=== PATIENT | female | born 1935 | race Hispanic/Latino ===

== ENCOUNTER 2017-09-08 10:53 | Emergency (ER) | payer MEDICARE, BC ==
[2017-09-08 11:23] VITALS: BP 170/90; PULSE 86; RESP 18; TEMP 97.6; O2SAT 99; BMI 25.1
--- NOTE | 2017-09-08 12:15 | ED PDOC ---
Arrival/HPI - General Chief Complaint: Lower Extremity Problem/Injury Time Seen by Provider: 09/08/17 11:25 Historian: Patient, Family - History of Present Illness Narrative History of Present Illness (Text): 09/08/17 12:11 81 year old female, whose medical history includes poor circulation, brought into the Emergency department by son presents with right knee pain since yesterday. Patient states she was spring cleaning and repeatedly climbing up and down a step ladder throughout the day. By the end of the day, right knee began to hurt so patient took an Aspirin 325 mg. Patient continued to ambulate and pain persisted through the night. Patient denies trauma, change in motor or sensation, fever, chills, shortness of breath, nausea, vomiting, diarrhea, or any other complaints. Patient reports she has previously had fluid on the right knee and had it drained by Dr. Lovett. Time/Duration: 24 hours Symptom Onset: Gradual Symptom Course: Unchanged Quality: Aching, Pressure Severity Level: 6 Activities at Onset: Light Context: Exertion, Home Past Medical History - Provider Review Nursing Documentation Reviewed: Yes - Travel History Have you recently traveled outside [place] w/in the past 3 mons?: No - Cardiac Hx Cardiac Disorders: Yes - Pulmonary Hx Respiratory Disorders: No - Neurological Hx Neurological Disorder: No - HEENT Hx HEENT Disorder: No - Renal Hx Renal Disorder: No - Endocrine/Metabolic Hx Endocrine Disorders: No - Hematological/Oncological Hx Blood Disorders: No - Integumentary Hx Dermatological Disorder: No - Musculoskeletal/Rheumatological Hx Musculoskeletal Disorders: Yes Other/Comment: right knee - Gastrointestinal Hx Gastrointestinal Disorders: No - Genitourinary/Gynecological Hx Genitourinary Disorders: No - Psychiatric Hx Psychophysiologic Disorder: No Hx Substance Use: No - Surgical History Other/Comment: fluid drained from right knee Family/Social History - Physician Review Nursing Documentation Reviewed: Yes Family/Social History: Unknown Family HX Smoking Status: Heavy Smoker > 10 Cigarettes Daily Hx Alcohol Use: No Hx Substance Use: No Allergies/Home Meds Allergies/Adverse Reactions: Allergies No Known Allergies Allergy (Verified 09/08/17 11:13) Home Medications: Home Meds Medication Instructions Recorded Confirmed Aspirin [Adult Aspirin] 81 mg PO TID 09/08/17 09/08/17 Simvastatin [Zocor] 40 mg PO DAILY 05/06/18 05/06/18 Review of Systems - Physician Review All systems were reviewed & negative as marked: Yes - Review of Systems Constitutional: absent: Fevers, Night Sweats Eyes: Normal ENT: Normal Respiratory: Normal. absent: SOB Cardiovascular: Normal Gastrointestinal: Normal. absent: Abdominal Pain Genitourinary Female: Normal. absent: Dysuria Musculoskeletal: Arthralgias (right knee), Other (right knee pain) Skin: Normal Neurological: Normal, Gait Changes (slight limp). absent: Focal Weakness Endocrine: Normal Hemo/Lymphatic: Normal Psychiatric: Normal Physical Exam Vital Signs Reviewed: Yes Vital Signs Temp Pulse Resp BP Pulse Ox 09/08/17 11:20 97.6 F 86 18 170/90 H 99 Temperature: Afebrile Blood Pressure: Hypertensive Pulse: Regular Respiratory Rate: Normal Appearance: Positive for: Well-Appearing, Non-Toxic, Comfortable Pain Distress: Mild Mental Status: Positive for: Alert and Oriented X 3 - Systems Exam Head: Present: Atraumatic, Normocephalic Pupils: Present: PERRL Extroacular Muscles: Present: EOMI Conjunctiva: Present: Normal Mouth: Present: Moist Mucous Membranes Neck: Present: Normal Range of Motion Respiratory/Chest: Present: Clear to Auscultation, Good Air Exchange. No: Respiratory Distress, Accessory Muscle Use Cardiovascular: Present: Regular Rate and Rhythm, Normal S1, S2. No: Murmurs Abdomen: No: Tenderness, Distention, Peritoneal Signs Back: Present: Normal Inspection Upper Extremity: Present: Normal Inspection. No: Cyanosis, Edema Lower Extremity: Present: NORMAL PULSES, Normal ROM (Full active and passive ROM ), Tenderness (medial jt line right knee), Swelling (medial aspect of right knee ), Neurovascularly Intact, Capillary Refill < 2 s, Other (Right medial joint line tenderness and effusion. Motor function is 5/5 bilaterally.). No: CALF TENDERNESS, Ernesto's Sign, Deformity, Temperature Abnormalties Neurological: Present: GCS=15, CN II-XII Intact, Speech Normal, Motor Func Grossly Intact, Normal Sensory Function, Gait Normal (mildly antalgic on the right LE). No: Memory Normal Skin: Present: Warm, Dry, Normal Color. No: Rashes Psychiatric: Present: Alert, Oriented x 3, Normal Insight, Normal Concentration Medical Decision Making ED Course and Treatment: 09/08/17 12:10 Impression: 81 year old female presents to the Emergency department complaining of right knee pain since yesterday. (+) R Ju's for meniscal pathology; (-) anterior drawer, Ryan's, or varus/valgus stress test Differential Diagnosis included but are not limited to: meniscal tear secondary to osteoarthritis vs. rule out DVT Plan: -- Bilateral lower extremity Duplex -- Reassess and disposition Progress Notes: 09/08/17 12:10 Patient is worried she may have a DVT because of her history of circulation issues so will order a Doppler. There is no need for x-ray because the patient did not fall or experience legitimate trauma. 09/08/17 12:55 ISABELA wrap for the right knee US results pending 09/08/17 14:14 Bilateral doppler NEGATIVE for DVT Discussed with pt and advised to see PMD and orthopedist in the next few days Likely has menisical irritation secondary to OA - RAD Interpretation Radiology Orders: 09/08/17 12:19 DUPLEX LOWER EXTRM VEIN BILAT [US] Stat - Scribe Statement The provider has reviewed the documentation as recorded by the Odilon Santiago Provider Scribe Attestation: All medical record entries made by the Scribe were at my direction and personally dictated by me. I have reviewed the chart and agree that the record accurately reflects my personal performance of the history, physical exam, medical decision making, and the department course for this patient. I have also personally directed, reviewed, and agree with the discharge instructions and disposition. Disposition/Present on Arrival - Present on Arrival Any Indicators Present on Arrival: Yes History of DVT/PE: No History of Uncontrolled Diabetes: No Urinary Catheter: No History of Decub. Ulcer: No History Surgical Site Infection Following: None - Disposition Have Diagnosis and Disposition been Completed?: Yes Diagnosis: Meniscal injury, Osteoarthritis Disposition: HOME/ ROUTINE Disposition Time: 14:17 Patient Plan: Discharge Condition: GOOD Discharge Instructions (ExitCare): Osteoarthritis, Meniscal Tear (DC) Additional Instructions: Rosalind, thank you for letting us take care of you today. Your provider was ABDIFATAH Burnham. You were treated for right knee pain. The emergency medical care you received today was directed at your acute symptoms. If you were prescribed any medication, please fill it and take as directed. It may take several days for your symptoms to resolve. Return to the Emergency Department if your symptoms worsen, do not improve, or if you have any other problems. Please see your doctor for on-going care. Please contact your doctor or call one of the physicians/clinics you have been referred to that are listed on the Patient Visit Information form that is included in your discharge packet. Bring any paperwork you were given at discharge with you along with any medications you are taking to your follow up visit. Our treatment cannot replace ongoing medical care by a primary care provider (PCP) outside of the emergency department. Thank you for allowing the [facility] team to be part of your care today. Prescriptions: Naproxen 500 mg PO Q12 #10 tablet Referrals: Tenzin Franco MD [Primary Care Provider] - Follow up with primary Forms: [email or web address] ([place])
--- NOTE | 2017-09-08 19:35 | US ---
HISTORY: Leg pain and swelling. Evaluate for DVT PHYSICIAN(S): Joao Castillo MD. TECHNIQUE: Duplex sonography and color-flow Doppler with graded compression were used to evaluate the deep venous systems of both lower extremities. FINDINGS: The visualized deep venous systems of both lower extremities are sonographically normal and compressible. Normal wave forms and augmentation are seen. There is no sonographic evidence for deep venous thrombosis in the visualized segments of both lower extremities. IMPRESSION: No sonographic evidence for deep venous thrombosis in the visualized segments of both lower extremities.
== END 2017-09-08 14:54 | disposition home or self-care (01) ==
LOC: ED 10:53
DX: M17.11 Unilateral primary osteoarthritis, right knee (principal); S83.206A Unspecified tear of unspecified meniscus, current injury, right knee, initial encounter; X50.0XXA Overexertion from strenuous movement or load, initial encounter; Y93.E9 Activity, other interior property and clothing maintenance; Y92.009 Unspecified place in unspecified non-institutional (private) residence as the place of occurrence of the external cause

== ENCOUNTER 2018-05-30 10:24 | Outpatient (CLI) | payer MEDICARE, BC | END 2018-05-30 10:25 | disposition home or self-care (01) | LOC: RAD 10:24 | DX: Z12.31 Encounter for screening mammogram for malignant neoplasm of breast (principal) ==

== ENCOUNTER 2018-09-25 16:27 | Inpatient (IN) | payer MEDICARE, BC ==
[2018-09-25 16:28] VITALS: BMI 27.3
--- NOTE | 2018-09-25 17:01 | ED PDOC ---
Arrival/HPI - General Chief Complaint: Syncope Time Seen by Provider: 09/25/18 16:31 Historian: Patient - History of Present Illness Narrative History of Present Illness (Text): 09/25/18 16:31 Patient is an 82 year old female, with a past medical history of poor circulation and stress test, bib EMS for complaining of lightheadedness since earlier today. Patient informs lightheadedness began walking into her home coming [place] from [employer]. Notes associated "tense" sensation to the chest during episode. Per grandson, pt was unresponsive, "convulsed" once, and hit her head on a stair; denies loss of consciousness or any other injuries. Patient notes an episode of similar complaints near 04/2018. Patient denies shortness of breath, leg swelling, abdominal pain, appetite changes, nausea, vomiting, diarrhea, headache, fevers, dysuria, hematuria, or any other complaints. Symptom Onset: Sudden Symptom Course: Resolved Activities at Onset: Light Context: Home Past Medical History - Provider Review Nursing Documentation Reviewed: Yes - Infectious Disease Hx of Infectious Diseases: None - Cardiac Hx Cardiac Disorders: Yes Hx Hypertension: Yes - Pulmonary Hx Respiratory Disorders: No - Neurological Hx Neurological Disorder: No - HEENT Hx HEENT Disorder: No - Renal Hx Renal Disorder: No - Endocrine/Metabolic Hx Endocrine Disorders: No - Hematological/Oncological Hx Blood Disorders: No - Integumentary Hx Dermatological Disorder: No - Musculoskeletal/Rheumatological Hx Musculoskeletal Disorders: Yes Other/Comment: right knee - Gastrointestinal Hx Gastrointestinal Disorders: No - Genitourinary/Gynecological Hx Genitourinary Disorders: No - Psychiatric Hx Psychophysiologic Disorder: No Hx Substance Use: No - Surgical History Other/Comment: fluid drained from right knee - Anesthesia Hx Anesthesia: No Hx Anesthesia Reactions: No Hx Malignant Hyperthermia: No Family/Social History - Physician Review Nursing Documentation Reviewed: Yes Family/Social History: Unknown Family HX Smoking Status: Heavy Smoker > 10 Cigarettes Daily Hx Alcohol Use: No Hx Substance Use: No Allergies/Home Meds Allergies/Adverse Reactions: Allergies No Known Allergies Allergy (Verified 09/08/17 11:13) Home Medications: Home Meds Medication Instructions Recorded Confirmed Aspirin [Adult Aspirin] 81 mg PO TID 09/08/17 09/08/17 Simvastatin [Zocor] 40 mg PO DAILY 09/08/17 09/08/17 Review of Systems - Physician Review All systems were reviewed & negative as marked: Yes - Review of Systems Constitutional: Other (lightheadedness). absent: Fevers Respiratory: absent: SOB Cardiovascular: Chest Pain (described as "tense" sensation). absent: Edema Gastrointestinal: absent: Abdominal Pain, Diarrhea, Nausea, Vomiting Genitourinary Female: absent: Dysuria, Hematuria Neurological: absent: Headache Physical Exam Vital Signs Reviewed: Yes Vital Signs Temp Pulse Resp BP Pulse Ox 09/25/18 16:27 97.2 F L 90 18 109/58 L 96 Temperature: Afebrile Blood Pressure: Normal Pulse: Regular Respiratory Rate: Normal Appearance: Positive for: Well-Appearing, Non-Toxic, Comfortable Pain Distress: None Mental Status: Positive for: Alert and Oriented X 3 Finger Stick Blood Glucose: 138 - Systems Exam Head: Present: Atraumatic, Normocephalic Pupils: Present: PERRL Extroacular Muscles: Present: EOMI Conjunctiva: Present: Normal Mouth: Present: Moist Mucous Membranes Neck: Present: Normal Range of Motion Respiratory/Chest: Present: Clear to Auscultation, Good Air Exchange. No: Respiratory Distress, Accessory Muscle Use, Wheezes, Rales, Rhonchi Cardiovascular: Present: Regular Rate and Rhythm, Normal S1, S2. No: Murmurs, Rub, Gallop Abdomen: Present: Normal Bowel Sounds. No: Tenderness, Distention, Peritoneal Signs, Rebound, Guarding Back: Present: Normal Inspection Upper Extremity: Present: Normal Inspection, Normal ROM, Neurovascularly Intact. No: Cyanosis, Edema Lower Extremity: Present: Normal Inspection, Normal ROM, Neurovascularly Intact. No: Edema Neurological: Present: GCS=15, CN II-XII Intact, Speech Normal, Motor Func Grossly Intact Skin: Present: Warm, Normal Color, Diaphoretic. No: Rashes Psychiatric: Present: Alert, Oriented x 3, Normal Insight, Normal Concentration Medical Decision Making ED Course and Treatment: 09/25/18 16:31 Impression: Patient is an 82 year old female, with a past medical history of poor circulation and stress tests, who presents to the emergency department complaining of lightheadedness since earlier today. Plan: -- CT Head w/o Contrast -- EKG -- Labs -- Chest X-Ray -- Urinalysis -- Reassess and disposition Prior Visits: Notes and results from previous visits were reviewed. Progress Notes: 09/25/18 18:49 CXR negative. EKG reviewed and noted. Troponin negative. Currently no chest pain. Patient has risks factor and her history is concerning for cardiac syncope. I discussed the case with Dr. Pina who will place the patient on tele obs for Syncope. Consult requested for Dr. Barnes, Cardiology which was placed by me. Patient has leukocytosis with no fever, no cough and no urinary complaints. UA pending. - RAD Interpretation Narrative RAD Interpretations (Text): 09/25/18 18:26 CT Head shows: IMPRESSION: No acute intracranial pathology identified Radiology Orders: 09/25/18 16:42 HEAD W/O CONTRAST [CT] Stat CHEST PORTABLE [RAD] Stat Broadcast Designer: Radiologist - EKG Interpretation EKG Interpretation (Text): 09/25/18 16:41 Reviewed EKG, shows: NSR at 91 BPM. Interpreted by ED Physician: Yes Type: 12 lead EKG - Scribe Statement The provider has reviewed the documentation as recorded by the Scribe Mariusz Mooney All medical record entries made by the Scribe were at my direction and personally dictated by me. I have reviewed the chart and agree that the record accurately reflects my personal performance of the history, physical exam, medical decision making, and the department course for this patient. I have also personally directed, reviewed, and agree with the discharge instructions and disposition. Disposition/Present on Arrival - Present on Arrival Any Indicators Present on Arrival: No History of DVT/PE: No History of Uncontrolled Diabetes: No Urinary Catheter: No History of Decub. Ulcer: No History Surgical Site Infection Following: None - Disposition Have Diagnosis and Disposition been Completed?: Yes Diagnosis: Chest pain, Syncope Disposition: HOSPITALIZED Disposition Time: 18:10 Patient Plan: Observation Condition: FAIR
[2018-09-25 17:31] LABS: BASO # 0.02 K/mm3 (0.0-2.0); BASO % 0.2 % (0.0-3.0); EOS # 0.1 (0.0-0.7); EOS % 0.6 % (1.5-5.0); HEMOGLOBIN 11.2 g/dL (12.0-16.0); LYMPH # 1.8 (1.2-3.4); LYMPH % 14.1 % (22.0-35.0); MEAN CELL VOLUME 98.2 fl (80.0-105.0); MEAN CORPUSCULAR HEMOGLOBIN 33.4 pg (25.0-35.0); MEAN PLATELET VOLUME 8.4 fl (7.0-11.0); MONO # 0.7 (0.1-0.6); MONO % 5.3 % (1.0-6.0); RBC 3.35 10^6/uL (3.5-6.1); RED CELL DISTRIBUTION WIDTH 12.7 % (11.5-14.5); WHITE BLOOD COUNT 12.5 10^3/uL (4.5-11.0)
[2018-09-25 17:40] LABS: ALB/GLOB RATIO 1.3 (1.1-1.8); ALBUMIN 3.9 g/dL (3.0-4.8); ALT/SGPT 26 U/L (7-56); AST/SGOT 30 U/L (14-36); BLOOD UREA NITROGEN 23 mg/dL (7-21); CALCIUM 9.2 mg/dL (8.4-10.5); GFR NON-AFRICAN AMERICAN > 60
[2018-09-25 17:51] LABS: TROPONIN I < 0.01 ng/mL
--- NOTE | 2018-09-25 18:04 | CT ---
Date of service: 09/25/2018 PROCEDURE: CT HEAD WITHOUT CONTRAST. HISTORY: near syncope, head injury COMPARISON: None available. TECHNIQUE: Axial computed tomography images were obtained through the head/brain without intravenous contrast. Radiation dose: Total exam DLP = 770.12 mGy-cm. This CT exam was performed using one or more of the following dose reduction techniques: Automated exposure control, adjustment of the mA and/or kV according to patient size, and/or use of iterative reconstruction technique. FINDINGS: HEMORRHAGE: No intracranial hemorrhage. BRAIN: Diffuse atrophy with prominence of the ventricles and sulci noted. No mass effect or edema. Intracranial atherosclerosis. Scattered periventricular and subcortical white matter hypodensities, which are nonspecific, but often seen with chronic microvascular ischemic disease. Please note that MRI with diffusion imaging is more sensitive in the detection of acute ischemic event. VENTRICLES: No hydrocephalus. CALVARIUM: Unremarkable. PARANASAL SINUSES: Unremarkable as visualized. No significant inflammatory changes. MASTOID AIR CELLS: Unremarkable as visualized. No inflammatory changes. OTHER FINDINGS: None. IMPRESSION: No acute intracranial pathology identified.
[2018-09-25] MEDS ORDERED: Magnesium Oxide 400 mg Tab UD PO STA (18:11)
[2018-09-25] MEDS ORDERED: Sodium Chloride 0.9% 500 ML IV STA (18:11)
[2018-09-25 18:37] LABS: VENOUS BLOOD GAS BASE EXCESS 8.8 mmol/L (0.0-2.0); VENOUS BLOOD GAS PO2 32 mm/Hg (30-55); VENOUS BLOOD PH 7.46 (7.32-7.43)
--- NOTE | 2018-09-25 18:42 | CARD ---
APPROVED REPORT Date of service: 09/25/2018 EKG Measurement Heart [id number] <Conclusion> Normal sinus rhythm Normal ECG
[2018-09-25 18:53] LABS: PH,URINE 6.5 (4.7-8.0); URINE APPEARANCE CLEAR (CLEAR); URINE BILIRUBIN NEGATIVE (NEGATIVE); URINE BLOOD NEGATIVE (NEGATIVE); URINE COLOR YELLOW (YELLOW); URINE GLUCOSE (UA) NEGATIVE (NEGATIVE); URINE LEUKOCYTE ESTERASE TRACE Leu/uL (NEGATIVE); URINE PROTEIN TRACE mg/dL (<30 mg/dL); URINE UROBILINOGEN 0.2 E.U./dL (<1 E.U./dL)
--- NOTE | 2018-09-25 19:02 | RAD ---
Date of service: 09/25/2018 HISTORY: Chest pain COMPARISON: Comparison chest 09/14/2014 TECHNIQUE: 1 view obtained. FINDINGS: LUNGS: Poor inspiration with low lung volumes, crowded bronchovascular markings and mild bibasilar atelectasis. PLEURA: No significant pleural effusion identified, no pneumothorax apparent. CARDIOVASCULAR: No aortic atherosclerotic calcification present. Normal cardiac size. No pulmonary vascular congestion. OSSEOUS STRUCTURES: Note made a sclerotic density overlying the left humeral head which could represent soft tissue calcification or possibly a small enchondroma VISUALIZED UPPER ABDOMEN: Normal. OTHER FINDINGS: None. IMPRESSION: Poor inspiration with low lung volumes, crowded bronchovascular markings and mild bibasilar atelectasis
[2018-09-25 19:11] LABS: URINE RBC 0 - 2 /hpf (0-2)
[2018-09-25 19:12] LABS: URINE EPITHELIAL CELLS 0 - 2 /hpf (0-5)
--- NOTE | 2018-09-25 23:26 | HP ---
DATE OF EXAM: 09/25/2018 HISTORY OF PRESENT ILLNESS: The patient is seen in the emergency room at [facility] in [place]. The patient presented with history of syncope with many seizures. The patient was with the grandson at the time this happened. The patient was brought into the hospital by ambulance, evaluated in the emergency room and she has been admitted for management and evaluation of seizure and the patient has a past history of hypertension. The patient has history of similar episode in the past about 6 months ago. She was treated at [facility] and was told that everything turned out to be negative for her evaluation. PHYSICAL EXAMINATION: GENERAL: The patient is conscious, oriented and is able to answer all questions. There is no evidence of any injury noted at this time. HEAD: The scalp is within normal limits. NECK: The thyroid is not enlarged. The face is within normal limits. The JVP is flat. Carotid pulses are present bilaterally. HEART: Normal sinus rhythm. S1 and S2 present. ABDOMEN: Soft. Liver and spleen not palpable. CENTRAL NERVOUS SYSTEM: The patient is conscious, rational, and oriented. Answers all questions. Cranial nerves II through XII is within normal limits. Motor and sensory functions evaluation is within normal limits. Cerebellar function is not tested at this time, the patient is lying in the bed. The patient's reflexes are okay. LABORATORY DATA: The evaluation done in the emergency room. CAT scan of the head shows evidence of diffuse atrophy of the brain, which also shows evidence of microvascular disease and no localizing lesions. Examination of the heart, the patient has normal sinus rhythm. The patient's EKG is read normal sinus rhythm, normal EKG, with no abnormality noted. The patient's chest x-ray is clear. ASSESSMENT AND PLAN: The patient is going to be admitted to the hospital. The plan is to evaluate the patient for cause of syncope. The patient will be placed on the simvastatin, the patient was given 40 mg daily and aspirin 81 mg daily. The patient has cardiac evaluation with Dr. Barnes and Dr. Jay and neurological evaluation with Dr. Hsu. We will follow up. In the meantime, we are going to order an electroencephalogram for the patient because of this small event of seizure during the process at home. The patient will have repeat Holter monitor, carotid Doppler, and we will follow up on the blood tests. We will check the vitamin B12 and folic acid level and magnesium level and thyroid function studies. Gregorio Franco MD MTDKassandra
[2018-09-26 05:41] VITALS: O2SAT 96
[2018-09-26 07:14] LABS: BLOOD UREA NITROGEN 26 mg/dL (7-21); CALCIUM 9.1 mg/dL (8.4-10.5); GFR NON-AFRICAN AMERICAN > 60
[2018-09-26 07:51] LABS: BASO # 0.02 K/mm3 (0.0-2.0); BASO % 0.2 % (0.0-3.0); EOS # 0.1 (0.0-0.7); EOS % 0.8 % (1.5-5.0); HEMOGLOBIN 10.2 g/dL (12.0-16.0); LYMPH # 1.7 (1.2-3.4); LYMPH % 20.5 % (22.0-35.0); MEAN CELL VOLUME 97.7 fl (80.0-105.0); MEAN CORPUSCULAR HGB CONC 33.8 g/dl (31.0-37.0); MEAN PLATELET VOLUME 8.9 fl (7.0-11.0); MONO # 0.7 (0.1-0.6); MONO % 8.3 % (1.0-6.0); RBC 3.09 10^6/uL (3.5-6.1); RED CELL DISTRIBUTION WIDTH 12.7 % (11.5-14.5); WHITE BLOOD COUNT 8.5 10^3/uL (4.5-11.0)
[2018-09-26] MEDS: Magnesium Oxide 400 mg Tab UD PO SCH ×2 (10:20→18:04)
--- NOTE | 2018-09-26 10:21 | PN ---
DATE: 09/26/2018 SUBJECTIVE: The patient is in [facility], Telemetry Unit, room 261, bed 1. The patient was admitted last night after being evaluated for syncope and a mini seizure. In the emergency room, the patient was clinically stable. At that time, she was evaluated and admitted to the Telemetry Unit for further evaluation and treatment. PHYSICAL EXAMINATION: VITAL SIGNS: Today the blood pressure is 145/74, respirations are 18, pulse is 76, O2 sat is 96% on room air. HEENT: The patient's head is normocephalic. NECK: The thyroid is not enlarged. JVP is flat. The carotid pulses are present. LUNGS: Trachea central. Breath sounds are vesicular. No adventitious sounds. HEART: Normal sinus rhythm. S1 and S2 present. No murmurs. The EKG shows normal sinus rhythm. No arrhythmia. ABDOMEN: Liver and spleen not palpable. CENTRAL NERVOUS SYSTEM: The patient had no focal neurological deficits noted. The CAT scan, as read, shows evidence of cerebral atrophy, which is diffuse. The patient has no localizing lesions. The tests ordered for the patient, the patient will have a carotid Doppler, Holter monitor, cardiac and neuro evaluation and followup and EEG also. LABORATORY DATA: The lab work done in the hospital hemoglobin 11.2[place] [id number], repeat the CBC. Chemistry; the patient's BUN and creatinine are within normal range. The patient has no obvious significant abnormality. Blood sugar is 96. The patient is on heart-healthy diet. We will follow up. Gregorio Franco MD BARB
--- NOTE | 2018-09-26 10:38 | US ---
PROCEDURE: Bilateral carotid artery duplex ultrasound HISTORY: Carotid stenosis PHYSICIAN(S): Joao Castillo MD. TECHNIQUE: Duplex sonography and color-flow Doppler were used to evaluate the carotid bifurcations and limited segments of the vertebral arteries bilaterally. The exam is somewhat limited by tortuous vessels FINDINGS: There is mild smooth heterogeneous plaque noted at the carotid bifurcations bilaterally. The peak systolic velocity in the proximal right internal carotid artery is 74 cm/sec. This corresponds to a 20 to 39% proximal right ICA stenosis. Normal systolic velocities are noted in the proximal right external carotid artery. There is antegrade flow in the right vertebral artery. The peak systolic velocity in the proximal left internal carotid artery is 97 cm/sec. This corresponds to a 20 to 39% proximal left ICA stenosis. Normal systolic velocities are noted in the proximal left external carotid artery. There is antegrade flow in the left vertebral artery. IMPRESSION: 1. Bilateral 20-39% proximal ICA stenoses. 2. Antegrade flow in both vertebral arteries.
--- NOTE | 2018-09-26 12:16 | CP.PCM.PCO ---
Physician Communication Note - Physician Communication Note Physician Communication Note: neurology consult pending
--- NOTE | 2018-09-26 15:10 | CON ---
DATE: 09/26/2018 CHIEF COMPLAINT: Syncope. HISTORY OF PRESENT ILLNESS: This is an 82-year-old female with history of syncopal episode in the past, hypertension who was apparently coming back from a shop,she got lightheaded, felt a sensation in her chest and became unresponsive and jerked her extremities and hit her head on the stairs, but no injuries. No change in sense, vision, taste or smell. CAT scan of the head showed no acute intracranial abnormality. Carotid Doppler shows 20%-39% possible ICA stenosis with antegrade flow in the vertebral arteries. EEG was done, but the report is currently awaiting to be uploaded, will be read by . This is unlikely a seizure, it was most likely syncopal convulsion. She had low blood pressure of 109/53 in addition to elevated BUN and creatinine indicating mild dehydration. PAST MEDICAL HISTORY: As above. SOCIAL HISTORY: No illicit drug abuse, smoking, or EtOH abuse. REVIEW OF SYSTEMS: A 12-point review of systems is negative except per the HPI. FAMILY HISTORY: Noncontributory. MEDICATIONS: Reviewed by nurses' reconciliation sheet. ALLERGIES: NO KNOWN DRUG ALLERGIES. LABORATORY DATA: Sodium 137, potassium 4, chloride 103, carbon dioxide 27, BUN of 26, creatinine 0.5, random glucose 96. PHYSICAL EXAMINATION: GENERAL: The patient is sitting up in bed, in no acute distress. VITAL SIGNS: Temperature 97.6, pulse rate is 81, blood pressure 137/86, respiratory rate of 20, and oxygen saturation 96% on room air. HEENT: Atraumatic and normocephalic. PERRLA. Extraocular muscles intact. NECK: Supple. No JVD. No adenopathy noted. LUNGS: Clear to auscultation. No adventitious sounds. HEART: S1 and S2, normal rate and rhythm. No murmurs, rubs or gallops. ABDOMEN: Soft, nontender, and nondistended. Bowel sounds present. EXTREMITIES: No clubbing. No cyanosis. Peripheral pulses 2+ felt bilaterally. NEUROLOGIC: The patient is alert, oriented to person, place, month and year. Speech is fluent without any errors. Cranial nerves II through XII are intact. Motor exam: Moves all extremities equally. No pronator drift seen. Sensory exam: Light touch, pinprick, proprioception, and vibration are intact. DTRs are 2+ throughout. Coordination: [id number] is intact. No dysmetria noted. Gait is deferred for now. IMPRESSION: Syncope most likely of a syncopal convulsion from transient cerebral hypoperfusion to the brain rather than a seizure. Carotid Doppler showed 20%-39% possible ICA stenosis with antegrade flow in the vertebral arteries. At this time, recommend no AEDs for now. Recommend frequent hydration throughout the day since she does not hydrate the fluids and PT/OT evaluation. We will followup as an outpatient. Continue EEG result. Thank you for this consult. Navid Hsu MD
[2018-09-27 00:08] VITALS: RESP 19
[2018-09-27 06:46] VITALS: BP 142/77; PULSE 66; TEMP 98.1
[2018-09-27] MEDS: Magnesium Oxide 400 mg Tab UD PO SCH (09:00)
--- NOTE | 2018-09-27 09:38 | PN ---
DATE: 09/27/2018 SUBJECTIVE: The patient is in [facility] in room 261, bed 1. The patient was admitted after she had a syncope and possible mini seizure. The patient was brought to the emergency room for evaluation. She was admitted on . The patient was on the monitoring engineer for more than 24 hours. PHYSICAL EXAMINATION: VITAL SIGNS: Pulse is 56, blood pressure 142/77, respirations are 19, O2 sat is 98% on room air. The patient's temperature is 98.1 HEENT: Head is normocephalic. NECK: The thyroid is not enlarged. JVP is flat. Carotid pulses are present. LUNGS: Trachea central. Breath sounds are vesicular. No adventitious sounds. HEART: Normal sinus rhythm. S1 and S2 present. No murmurs. ABDOMEN: Soft. Liver and spleen not palpable. CENTRAL NERVOUS SYSTEM: No focal deficits. LABORATORY DATA: The patient's EKG shows normal sinus rhythm. Cardiac monitoring for more than 24 hours does not show any arrhythmia or heart block. The patient does not have any significant positive findings. The patient had a CAT scan that shows evidence of diffuse atrophy of the brain. The EEG was performed, results are not available. MEDICATIONS: The patient's medications revealed 81 mg of aspirin and simvastatin 20 mg once daily. ASSESSMENT AND PLAN: The patient had a cardiac evaluation, and at this time, we are waiting for the patient's medical records from [facility] to be delivered. The patient might be able to go home this afternoon and will follow up as an outpatient regarding any further workup. The patient's electroencephalogram was done, as mentioned. Diet is a heart-healthy diet, we will follow up. Gregorio Frnaco MD BARB
--- NOTE | 2018-09-27 10:52 | CP.PCM.PN ---
Subjective - Date & Time of Evaluation Date of Evaluation: 09/27/18 Time of Evaluation: 06:24 - Subjective Subjective: Awake, alert, no distress Reason for consultation and follow up: Cardiac evaluation of syncope,history of hypertension Seen and examined by me and Dr. Jay Objective - Vital Signs/Intake and Output Vital Signs (last 24 hours): Temp Pulse Resp BP Pulse Ox 98.1 F 66 19 142/77 96 09/27/18 06:00 09/27/18 06:00 09/27/18 06:00 09/27/18 06:00 09/26/18 05:40 Intake and Output: 09/27/18 09/27/18 06:59 18:59 Intake Total 3120 Output Total 8 Balance 3112 - Medications Medications: Current Medications Aspirin (Ecotrin) 81 mg PO DAILY [facility] Last Admin: 09/27/18 09:00 Dose: 81 mg Atorvastatin Calcium (Lipitor) 20 mg PO DIN [facility] Last Admin: 09/26/18 18:04 Dose: 20 mg Magnesium Oxide (Mag-Ox) 400 mg PO BID [facility] Last Admin: 09/27/18 09:00 Dose: 400 mg - Labs Labs: 09/26/18 06:20 09/26/18 06:20 - Constitutional Appears: Non-toxic, No Acute Distress - Eye Exam Eye Exam: Normal appearance Pupil Exam: NORMAL ACCOMODATION - ENT Exam ENT Exam: Mucous Membranes Moist, Normal Exam - Respiratory Exam Respiratory Exam: Decreased Breath Sounds, Clear to Ausculation Bilateral, NORMAL BREATHING PATTERN - Cardiovascular Exam Cardiovascular Exam: REGULAR RHYTHM, +S1, +S2 - GI/Abdominal Exam GI & Abdominal Exam: Soft, Normal Bowel Sounds - Extremities Exam Extremities Exam: Full ROM, Normal Capillary Refill - Neurological Exam Neurological Exam: Alert, Awake, Oriented x3 - Psychiatric Exam Psychiatric exam: Normal Affect, Normal Mood - Skin Skin Exam: Dry, Normal Color, Warm Assessment and Plan - Assessment and Plan (Free Text) Assessment: An 82 year old female who was brought to the ER due to complaining of lightheadedness post fall. Per grandson, pt was unresponsive, "convulsed" once, and hit her head on a stair. Had similar episode in 2018. History of hyp ertension, right knee fluid drainage, current heavy smoker. CT of head negative for bleeding, diffuse atrophy, scattered pericortical and subcorticol white matter hypodensities. Carotid doppler bilateral 20-39% proximal ICA stenosis. Evaluated by Neuro. Admitted for syncope. Encouraged oral hydration. Dr. Jay spoke with mervin and agreed to have a loop recorder. for further work up of syncope, Loop recorder insertion scheduled on . Feels better now. May discharge from cardiac standpoint and for loop recorder on October 02. Cardiac status stable. Plan: Feels okay Heart rate and blood pressure stable Cardiac status stable Scheduled for loop recorder on September. Dr. Jay discussed with mervin May discharge from cardiac standpoint Continue current treatment Continue current medications Will follow up Plan and treatment discussed with Dr. Jay
--- NOTE | 2018-09-29 03:09 | DS ---
BRIEF HISTORY: This is an 82-year-old female with history of hyperlipidemia and a syncopal episode about 6 months ago. The patient presented to the emergency room with syncope and possible seizure. The patient was with the grandson at home when this happened. She says she just passed out. According to the grandson, there were some shaking movements of her body. She had a similar episode about 6 months prior, which was treated at [facility] for, although she says all the tests done were negative. HOSPITAL COURSE: The patient was admitted to the Telemetry floor. She was given aspirin and simvastatin. For the hyperlipidemia, she was seen by Cardiology, Dr. Barnes and Dr. Jay; Neurology with Dr. Hsu. An EEG and Holter monitor were done. Carotid Doppler did not show any significant stenoses. Report of EEG and Holter monitor are currently pending. The patient will have a loop recorder implantation on 10/02/2018. She was discharged home in stable condition. DISCHARGE DIAGNOSES: Syncope and hyperlipidemia. DISCHARGE MEDICATIONS: Simvastatin 20 mg daily and aspirin 81 mg daily. Christa Franco MD BARB
--- NOTE | 2018-09-30 08:15 | CON ---
DATE: 09/26/2018 REASON FOR THE CONSULTATION AND FOLLOWUP: Cardiac evaluation and near syncopal episode. BRIEF CLINICAL HISTORY: This is an 82-year-old female with past medical history significant for hyperlipidemia, admitted with a complaint of near syncopal episode or syncope. The patient says that she went to the shopping for a shop at [place] and came back and then after that she felt a little dizzy and had palpitation and then passed out. She sat down on the staircase. According to the grandson in ER note, the patient passed out and had a convulsive type of episode noted. The patient has no recollection. The patient says a similar episode in the past 6 months ago and was admitted to [facility] where according to the patient she had a stress test and echo and she was told everything was alright and was discharged. PAST MEDICAL HISTORY: Significant for a similar episode of syncope/seizure episode and had a cardiac workup and was discharged from [facility]. Other significant history of hyperlipidemia. No history of hypertension. No history of coronary artery disease or valvular dysfunction. SOCIAL HISTORY: Denies any history of alcohol use. CURRENT MEDICATIONS: The patient is taking at home baby aspirin 81 mg daily, Naprosyn p.r.n. and Zocor 40 mg daily. REVIEW OF SYSTEMS: As per HPI. ALLERGIES: NO KNOWN DRUG ALLERGY. PHYSICAL EXAMINATION GENERAL: Height of the patient 5 feet. Weight of the patient 140 pounds. Body mass index 27.3 kg/m2. VITAL SIGNS: Temperature afebrile. Heart rate 76 and blood pressure 145/74. HEENT: PERRLA. Extraocular muscles intact. NECK: Supple. No carotid bruits. No thyromegaly. CHEST: Clear to auscultation. HEART: S1 and S2, regular. ABDOMEN: Soft. EXTREMITIES: Clubbing and cyanosis negative. LABORATORY DATA: Blood workup as follows, WBC 8.5, hemoglobin 10.2, hematocrit 30.2 and platelet count 198. Chemistry shows sodium 137, potassium 4.4, chloride 103, carbon dioxide 27, anion gap of 11, BUN 26, and creatinine 0.5. EKG showed normal sinus, no acute ST-T changes noted. IMPRESSION: An 82-year-old female with nothing significant past medical history, admitted with near syncope/syncopal episode, similar episode happened 6 months ago. The patient was extensively worked up. As per the patient, stress test and echo were negative. RECOMMENDATIONS: We will get signed release information to get the stress test and echo report. Consider neuro evaluation. If the neuro evaluation is negative for seizure, they will consider loop recorder implantation next as outpatient. We will discuss with . We will get the information from [facility]. Further recommendations depending upon the hospital course. We will follow with you. Thank you for providing us the opportunity in taking care of the patient, Mike Boyer. Kash Jay MD MTDD
== END 2018-09-27 12:55 | disposition home or self-care (01) | DRG 312 ==
LOC: ED 16:27 → ERH 18:10 → 2RNO 20:11 → OBSVTOIN 09-26 07:53
PROVIDERS: ADMIT Internal Medicine; ATTEND Internal Medicine
DX: R55 Syncope and collapse (principal); E86.0 Dehydration; E78.5 Hyperlipidemia, unspecified; I65.23 Occlusion and stenosis of bilateral carotid arteries; I10 Essential (primary) hypertension; F17.210 Nicotine dependence, cigarettes, uncomplicated

== ENCOUNTER 2018-09-27 21:37 | Inpatient (IN) | payer MEDICARE, BC ==
--- NOTE | 2018-09-27 21:44 | ED PDOC ---
Arrival/HPI - General Historian: Patient - History of Present Illness Narrative History of Present Illness (Text): 09/27/18 21:44 Patient is an 82 yo female with history of hypertension who presents with black stools. Patient was just discharged from [facility] [place] [place] this morning after being worked up following a syncopal vs seizure episode. Patient is scheduled for a loop recorder on 10/02. Patient states that she did not have a BM while she was hospitalized (about 3 days), which is normal for her. She had a well-formed BM today at home and states that it was black. She also noticed reddish tinge when she wiped. She denies this happening before. She denies diarrhea, constipation, or abdominal pain. She did not eat anything unusual today or take new medications. She is not on any anticoagulation but says she was given a baby aspirin while admitted. She has never had a colonoscopy. She denies family history of colon cancer. She denies personal history of anemia; however, she was noted to be anemic while hospitalized. She denies lightheadedness, dizziness, or SOB. Time/Duration: Prior to Arrival Symptom Onset: Sudden <Letty Cullen - Last Filed: 09/27/18 23:23> <Anand Presley - Last Filed: 09/28/18 01:11> - General Chief Complaint: GI Problem Time Seen by Provider: 09/27/18 21:43 Past Medical History - Provider Review Nursing Documentation Reviewed: Yes Primary Care Provider: Tenzin Franco R - Infectious Disease Hx of Infectious Diseases: None - Cardiac Hx Hypertension: Yes - Pulmonary Hx Respiratory Disorders: No - Neurological Hx Neurological Disorder: No - HEENT Hx HEENT Disorder: No - Renal Hx Renal Disorder: No - Endocrine/Metabolic Hx Endocrine Disorders: No - Hematological/Oncological Hx Blood Disorders: No - Integumentary Hx Dermatological Disorder: No - Musculoskeletal/Rheumatological Hx Falls: No - Gastrointestinal Hx Gastrointestinal Disorders: No - Genitourinary/Gynecological Hx Genitourinary Disorders: No - Psychiatric Hx Psychophysiologic Disorder: No Hx Substance Use: No - Surgical History Other/Comment: fluid drained from right knee - Anesthesia Hx Anesthesia: No Hx Anesthesia Reactions: No Hx Malignant Hyperthermia: No <Letty Cullen - Last Filed: 09/27/18 23:23> Family/Social History - Physician Review Nursing Documentation Reviewed: Yes Family/Social History: denies: Neoplasm/Cancer Smoking Status: Never Smoked Hx Alcohol Use: No Hx Substance Use: No <Letty Cullen - Last Filed: 09/27/18 23:23> Allergies/Home Meds <Letty Cullen - Last Filed: 09/27/18 23:23> <SakinaAnand - Last Filed: 09/28/18 01:11> Allergies/Adverse Reactions: Allergies No Known Allergies Allergy (Verified 09/27/18 21:50) Home Medications: Home Meds Medication Instructions Recorded Confirmed Aspirin [Adult Aspirin] 81 mg PO TID 09/08/17 09/27/18 Simvastatin [Zocor] 40 mg PO DAILY 09/08/17 09/27/18 Review of Systems - Review of Systems Constitutional: absent: Fatigue, Weight Change, Fevers Eyes: absent: Vision Changes ENT: absent: Hearing Changes Respiratory: absent: SOB, Cough Cardiovascular: Syncope (once a few days ago). absent: Chest Pain, Palpitations Gastrointestinal: Hematochezia. absent: Abdominal Pain, Stool Changes, Constipation, Diarrhea, Nausea, Vomiting, Hematemesis Genitourinary Female: absent: Dysuria, Hematuria Skin: absent: Rash, Pruritis, Skin Lesions Neurological: absent: Headache, Dizziness, Focal Weakness Endocrine: absent: Diaphoresis Hemo/Lymphatic: absent: Easy Bleeding, Easy Bruising <Letty Cullen - Last Filed: 09/27/18 23:23> - Physician Review All systems were reviewed & negative as marked: Yes <SakinaAnand - Last Filed: 09/28/18 01:11> Physical Exam Vital Signs Reviewed: Yes Temperature: Afebrile Blood Pressure: Normal Pulse: Regular Respiratory Rate: Normal Appearance: Positive for: Non-Toxic, Comfortable Pain Distress: None Mental Status: Positive for: Alert and Oriented X 3 - Systems Exam Head: Present: Atraumatic, Normocephalic Pupils: Present: PERRL Extroacular Muscles: Present: EOMI Conjunctiva: Present: Normal Mouth: Present: Moist Mucous Membranes Neck: Present: Normal Range of Motion Respiratory/Chest: Present: Clear to Auscultation, Good Air Exchange Cardiovascular: Present: Regular Rate and Rhythm, Normal S1, S2 Abdomen: No: Tenderness, Distention Rectal: Present: Occult Blood, Normal Rectal Tone. No: Rectal Tenderness, Hemorrhoids, Fissures, Nodule/Mass/Lesions Back: Present: Normal Inspection Upper Extremity: Present: Normal Inspection Lower Extremity: Present: Normal Inspection Neurological: Present: GCS=15, CN II-XII Intact, Speech Normal, Motor Func Grossly Intact, Normal Sensory Function Skin: Present: Warm, Dry, Normal Color Psychiatric: Present: Alert, Oriented x 3, Normal Insight, Normal Concentration, Normal Affect, Normal Mood <Letty Cullen - Last Filed: 09/27/18 23:23> Vital Signs Temp Pulse Resp BP Pulse Ox 09/27/18 21:54 97.5 F L 86 16 137/74 99 <Anand Presley - Last Filed: 09/28/18 01:11> Medical Decision Making ED Course and Treatment: 09/27/18 22:08 FOBT positive Labs 09/27/18 23:[address] Franco who accepts patient for admission. Requests Dr. Bashir for GI consult. Spoke to patient and grandson who are in agreement with admission. Re-evaluation Time: 23:11 Reassessment Condition: Re-examined, Unchanged - Lab Interpretations I have reviewed the lab results: Yes Interpretation: Abnormal lab values <Letty Cullen - Last Filed: 09/27/18 23:23> ED Course and Treatment: Patient Seen with Resident: In agreement with resident note which contains more details about the patient. Patient seen and evaluated with resident. Came up with plan and treatment together. 82 year old female presents complaining of black stool noted today. Plan: -- Labs -- Protonix Inj -- Guaiac test -- reassess/dispo <Anand Presley - Last Filed: 09/28/18 01:11> - PA / MOLD FORMS BUILDER / Resident Statement MD/ has reviewed & agrees with the documentation as recorded. MD/ has examined the patient and agrees with the treatment plan. - Scribe Statement The provider has reviewed the documentation as recorded by the Odilon Dimas Provider Scribe Attestation: All medical record entries made by the Scribe were at my direction and personally dictated by me. I have reviewed the chart and agree that the record accurately reflects my personal performance of the history, physical exam, medical decision making, and the department course for this patient. I have also personally directed, reviewed, and agree with the discharge instructions and disposition. <Anand Presley - Last Filed: 09/28/18 01:11> Disposition/Present on Arrival - Present on Arrival Any Indicators Present on Arrival: No History of DVT/PE: No History of Uncontrolled Diabetes: No Urinary Catheter: No History Surgical Site Infection Following: None - Disposition Have Diagnosis and Disposition been Completed?: Yes Disposition Time: 23:24 Patient Plan: Observation <Letty Cullen - Last Filed: 09/27/18 23:23> <Anand Presley - Last Filed: 09/28/18 01:11> - Disposition Diagnosis: GI bleed Disposition: HOSPITALIZED Patient Problems: Current Active Problems Problem Status Onset GI bleed Acute Condition: FAIR
[2018-09-27 21:50] VITALS: BMI 26.9
[2018-09-27 22:38] LABS: BASO # 0.02 K/mm3 (0.0-2.0); BASO % 0.2 % (0.0-3.0); EOS # 0.1 (0.0-0.7); EOS % 1.1 % (1.5-5.0); LYMPH # 1.9 (1.2-3.4); LYMPH % 22.1 % (22.0-35.0); MEAN CELL VOLUME 98.3 fl (80.0-105.0); MEAN CORPUSCULAR HEMOGLOBIN 33.2 pg (25.0-35.0); MEAN CORPUSCULAR HGB CONC 33.8 g/dl (31.0-37.0); MEAN PLATELET VOLUME 8.3 fl (7.0-11.0); MONO # 0.5 (0.1-0.6); MONO % 6.1 % (1.0-6.0); RBC 3.01 10^6/uL (3.5-6.1); RED CELL DISTRIBUTION WIDTH 12.7 % (11.5-14.5); WHITE BLOOD COUNT 8.5 10^3/uL (4.5-11.0)
[2018-09-27 22:42] LABS: INR 1.05; PARTIAL THROMBOPLASTIN TIME 43.2 Seconds (26.9-38.3); PROTHROMBIN TIME 11.6 SECONDS (9.4-12.5)
[2018-09-27 22:49] LABS: IRON 71 ug/dL (45-180)
[2018-09-27 22:50] LABS: ALB/GLOB RATIO 1.3 (1.1-1.8); ALBUMIN 4.1 g/dL (3.0-4.8); ALT/SGPT 22 U/L (7-56); AST/SGOT 30 U/L (14-36); BLOOD UREA NITROGEN 17 mg/dL (7-21); CALCIUM 9.2 mg/dL (8.4-10.5); GFR NON-AFRICAN AMERICAN > 60
[2018-09-27 22:58] LABS: % IRON SATURATION 24 % (20-55); TOTAL IRON BINDING CAPACITY 297 ug/dL (265-497)
[2018-09-28 13:38] LABS: FERRITIN 47.9 ng/mL
[2018-09-28 14:08] LABS: FOLATE > 20.0 ng/mL
--- NOTE | 2018-09-28 16:03 | CP.PCM.CON ---
History of Present Illness - History of Present Illness History of Present Illness: PGY-4 GI Fellow Consult Note 82 yo WF with HTN, Syncope (plans for Loop recorder), Seizure disorder presenting with black stool. She states that she was in her normal state of health after her recent admission here for syncope w/u where she was started on ASA with plans for Loop recorder. However, shortly after admission, she states that she noticed a black formed stool which was abnormal for her. Last BM was 3 days prior that was brown. She also reports that she has been using naproxen in the last month. She denied any weight loss, dysphagia, N/V, abd pain, hematochezia nor prior endoscopic evaluations. 12 point ROS negative other than stated above MHx/SurgHx: See above Meds: Reviewd in chart FamHx: Denied GI Problems SocHx: Denied x 3 All: NKDA Past Patient History - Infectious Disease Hx of Infectious Diseases: None - Past Social History Smoking Status: Current Some Days Smoker - CARDIAC Hx Hypercholesterolemia: Yes Hx Hypertension: Yes - PULMONARY Hx Respiratory Disorders: No - NEUROLOGICAL Hx Neurological Disorder: No - HEENT Hx HEENT Problems: No - RENAL Hx Chronic Kidney Disease: No - ENDOCRINE/METABOLIC Hx Endocrine Disorders: No - HEMATOLOGICAL/ONCOLOGICAL Hx Blood Disorders: No - INTEGUMENTARY Hx Dermatological Problems: No - MUSCULOSKELETAL/RHEUMATOLOGICAL Hx Falls: Yes - GASTROINTESTINAL Hx Gastrointestinal Disorders: No - GENITOURINARY/GYNECOLOGICAL Hx Genitourinary Disorders: No - PSYCHIATRIC Hx Psychophysiologic Disorder: No Hx Substance Use: No - SURGICAL HISTORY Other/Comment: fluid drained from right knee - ANESTHESIA Hx Anesthesia: No Hx Anesthesia Reactions: No Hx Malignant Hyperthermia: No Meds Allergies/Adverse Reactions: Allergies Allergy/AdvReac Type Severity Reaction Status Date / Time No Known Allergies Allergy Verified 09/27/18 21:50 - Medications Medications: Current Medications Pantoprazole Sodium (Protonix Inj) 40 mg IVP Q12 COCO Physical Exam - Constitutional Appears: Well, No Acute Distress - Head Exam Head Exam: ATRAUMATIC, NORMAL INSPECTION - Eye Exam Eye Exam: EOMI. absent: Scleral icterus - ENT Exam ENT Exam: Mucous Membranes Moist. absent: Mucous Membranes Dry - Respiratory Exam Respiratory Exam: NORMAL BREATHING PATTERN. absent: Accessory Muscle Use - Cardiovascular Exam Cardiovascular Exam: REGULAR RHYTHM, RRR - GI/Abdominal Exam GI & Abdominal Exam: Normal Bowel Sounds, Soft. absent: Bruit, Diminished Bowel Sounds, Distended, Firm, Guarding, Hernia, Mass, Organomegaly, Pulsatile Mass, Rebound, Rigid, Tenderness - Rectal Exam Rectal Exam: Black Stool, NORMAL INSPECTION - Extremities Exam Extremities exam: Positive for: normal inspection. Negative for: pedal edema - Neurological Exam Neurological exam: Alert, Oriented x3 - Psychiatric Exam Psychiatric exam: Normal Affect, Normal Mood - Skin Skin Exam: Normal Color, Warm Results - Vital Signs Recent Vital Signs: Last Vital Signs Temp 98.3 F 09/28/18 14:00 Pulse 79 09/28/18 14:00 Resp 18 09/28/18 14:00 BP 133/76 09/28/18 14:00 Pulse Ox 95 09/28/18 14:00 - Labs Result Diagrams: 09/27/18 22:25 09/27/18 22:25 Labs: Laboratory Results - last 24 hr 09/27/18 09/27/18 09/27/18 22:25 22:25 22:25 WBC 8.5 RBC 3.01 L Hgb 10.0 L Hct 29.6 L MCV 98.3 MCH 33.2 MCHC 33.8 RDW 12.7 Plt Count 189 MPV 8.3 Neut % (Auto) 70.5 H Lymph % (Auto) 22.1 [place] % (Auto) 6.1 H Eos % (Auto) 1.1 L Baso % (Auto) 0.2 Lymph # (Auto) 1.9 [place] # (Auto) 0.5 Eos # (Auto) 0.1 Baso # (Auto) 0.02 Absolute Neuts (auto) 5.96 PT INR APTT Sodium 132 Potassium 4.1 Chloride 96 L Carbon Dioxide 26 Anion Gap 14 BUN 17 Creatinine 0.6 L Est GFR ( Amer) > 60 Est GFR (Non-Af Amer) > 60 Random Glucose 111 H Calcium 9.2 Phosphorus 3.5 Magnesium 2.0 Iron 71 TIBC 297 % Saturation 24 Ferritin 47.9 Total Bilirubin 0.4 AST 30 ALT 22 Alkaline Phosphatase 80 Total Protein 7.1 Albumin 4.1 Globulin 3.1 Albumin/Globulin Ratio 1.3 Vitamin B12 366 Folate > 20.0 Blood Type Blood Type Confirm Antibody Screen BBK History Checked 09/27/18 09/27/18 09/28/18 22:25 22:42 00:47 WBC RBC Hgb Hct MCV MCH MCHC RDW Plt Count MPV Neut % (Auto) Lymph % (Auto) [place] % (Auto) Eos % (Auto) Baso % (Auto) Lymph # (Auto) [place] # (Auto) Eos # (Auto) Baso # (Auto) Absolute Neuts (auto) PT 11.6 INR 1.05 APTT 43.2 H Sodium Potassium Chloride Carbon Dioxide Anion Gap BUN Creatinine Est GFR ( Amer) Est GFR (Non-Af Amer) Random Glucose Calcium Phosphorus Magnesium Iron TIBC % Saturation Ferritin Total Bilirubin AST ALT Alkaline Phosphatase Total Protein Albumin Globulin Albumin/Globulin Ratio Vitamin B12 Folate Blood Type O POSITIVE Blood Type Confirm O POSITIVE Antibody Screen Negative BBK History Checked No verified bt Assessment & Plan - Assessment and Plan (Free Text) Assessment: 82 yo WF with HTN, Syncope (plans for Loop recorder), Seizure disorder presenting with black stool. # Melena: Seen on [facility]. Vitals stable. BUN elevated. Hgb 11.2->10.2 but some dilutional component. +NSAID and ASA use. No other blood thinners. # No prior EGD/CSPY Plan: -PPI IV q 12 hrs -CBC q 8 hrs -Clear Liq Diet for now -NPO at [place] -Possible EGD in AM vs overnight pending clinical course Pt discussed with Dr. Bashir; please see attestation for further recs/changes.
[2018-09-28 16:19] LABS: HEMOGLOBIN 9.8 g/dL (12.0-16.0); MEAN CELL VOLUME 97.7 fl (80.0-105.0); MEAN CORPUSCULAR HEMOGLOBIN 32.9 pg (25.0-35.0); MEAN CORPUSCULAR HGB CONC 33.7 g/dl (31.0-37.0); MEAN PLATELET VOLUME 8.1 fl (7.0-11.0); RBC 2.98 10^6/uL (3.5-6.1); RED CELL DISTRIBUTION WIDTH 12.7 % (11.5-14.5); WHITE BLOOD COUNT 6.9 10^3/uL (4.5-11.0)
--- NOTE | 2018-09-28 17:06 | HP ---
DATE OF EXAM: 09/28/2018 HISTORY OF PRESENT ILLNESS: The patient is in [facility] in room 576, bed 1. She was admitted last night via the emergency room where she presented with GI bleed and tarry stools. PAST MEDICAL HISTORY: The patient has past history of osteoarthritis, history of hypertension, controlled with diet. The patient also has history of hyperlipidemia. In the past, the patient was treated with nonsteroidal anti-inflammatory drugs, but the patient has not been taking any anti-inflammatory drugs recently, excepting aspirin 81 mg prophylactic dose. The patient was evaluated in the emergency room and admitted with GI bleeding. PHYSICAL EXAMINATION: VITAL SIGNS: This morning, pulse is 84, blood pressure 149/64, respirations are 18, O2 sat is 98% on room air, and the patient's temperature 97.5. GENERAL: The patient is lying in bed comfortable. Her color is normal. There is no evidence of any pallor. HEENT: Head is normocephalic. The conjunctiva is pink. The patient's throat is clear. NECK: Thyroid is not enlarged. LUNGS: Trachea is central. Breath sounds are vesicular. No adventitious sound. HEART: Normal sinus rhythm. S1 and S2 present. No murmurs. ABDOMEN: Soft. Liver and spleen nonpalpable. No tenderness. No masses. Left lower quadrant has no tenderness. RECTAL: There is evidence of tarry stools. The patient will be seen in consultation by Dr. Bashir, the merchandising stock associate. LABORATORY DATA: Blood work: The hemoglobin is 10.0. Chemistry: The sugar is 111, BUN is 17, and creatinine is 0.6. The patient has vitamin B12, folate levels pending. Ferritin is also pending. MEDICATIONS: The patient is on pantoprazole IV daily for GI bleeding. The patient has a history of hyperlipidemia. The patient will have statin given to her based on the judgment by Dr. Bashir, the merchandising stock associate. The patient's overall prognosis is guarded. Condition is improving, but the patient needs to have a diagnosis established for the GI bleeding. She has no past history of having had colonoscopy and she denied the procedure in the past, but currently the patient probably needs upper endoscopy and colonoscopy. We will continue current management and keep the patient under close watch. Gregorio Franco MD BARB
[2018-09-28 22:01] LABS: HEMOGLOBIN 9.7 g/dL (12.0-16.0); MEAN CELL VOLUME 97.6 fl (80.0-105.0); MEAN CORPUSCULAR HEMOGLOBIN 33.4 pg (25.0-35.0); MEAN CORPUSCULAR HGB CONC 34.3 g/dl (31.0-37.0); MEAN PLATELET VOLUME 8.3 fl (7.0-11.0); RBC 2.9 10^6/uL (3.5-6.1); RED CELL DISTRIBUTION WIDTH 12.7 % (11.5-14.5); WHITE BLOOD COUNT 7.6 10^3/uL (4.5-11.0)
[2018-09-29 07:31] LABS: HEMOGLOBIN 11.6 g/dL (12.0-16.0); MEAN CORPUSCULAR HGB CONC 33.7 g/dl (31.0-37.0); MEAN PLATELET VOLUME 8.6 fl (7.0-11.0); RBC 3.51 10^6/uL (3.5-6.1); RED CELL DISTRIBUTION WIDTH 12.9 % (11.5-14.5); WHITE BLOOD COUNT 9.6 10^3/uL (4.5-11.0)
[2018-09-29] MEDS ORDERED: Etomidate 20 mg/10ml Inj IV ONE (10:16)
[2018-09-29] MEDS ORDERED: Propofol 10 mg/ml Inj (20 ML) ONE (10:16)
[2018-09-29] MEDS ORDERED: Lidocaine 1% Inj (20ml) ONE (10:16)
[2018-09-29] MEDS ORDERED: Sodium Chloride 0.9% 1,000 ML IV SCH (11:30)
[2018-09-29] MEDS ORDERED: Barium Sulfate Susp 2.1% w/v, 2.0% w/w 450 mL Bottle PO ONE (12:21)
--- NOTE | 2018-09-29 13:03 | PN ---
DATE: 09/29/2018 SUBJECTIVE: The patient is seen in [facility] room 572, bed 1. The patient was admitted with GI bleeding and tarry stools. The patient denied any abdominal pain. She has no past history of similar ailments. The patient has past history of hypertension, hyperlipidemia, and osteoarthritis and the patient also has diffuse cerebral atrophy on CAT scan evaluation. PHYSICAL EXAMINATION: VITAL SIGNS: Pulse 75, blood pressure 122/63, respirations are 18, O2 saturation is 96% on room air. HEENT: The patient's head is normocephalic. NECK: On examination, thyroid is enlarged. JVP is flat. Trachea is central. Breath sounds are vesicular. No adventitious sounds. HEART: Normal sinus rhythm. S1 and S2 present. No murmurs. ABDOMEN: Soft. Liver and spleen nonpalpable. No tenderness. CENTRAL NERVOUS SYSTEM: The patient has no focal neurological deficits. MEDICATIONS: Pantoprazole IV n.p.o. excepting clear fluids. PLAN: The patient is awaiting the procedure by the computer artist for GI bleeding, possibly the patient has some bleeding due to peptic ulcer or duodenal ulcer because the stool is consistently tarry. We will followup. Gregorio Franco MD BARB
--- NOTE | 2018-09-29 13:04 | CP.PCM.PCO ---
Physician Communication Note - Physician Communication Note Physician Communication Note: Esophageal Polyp vs Mass on EGD. CT scan today. Clear Liq Diet OK.
[2018-09-29 14:23] LABS: HEMOGLOBIN 10.2 g/dL (12.0-16.0); MEAN CELL VOLUME 98.7 fl (80.0-105.0); MEAN CORPUSCULAR HEMOGLOBIN 33.1 pg (25.0-35.0); MEAN CORPUSCULAR HGB CONC 33.6 g/dl (31.0-37.0); MEAN PLATELET VOLUME 8.7 fl (7.0-11.0); RBC 3.08 10^6/uL (3.5-6.1); RED CELL DISTRIBUTION WIDTH 12.8 % (11.5-14.5); WHITE BLOOD COUNT 7.9 10^3/uL (4.5-11.0)
[2018-09-29] MEDS ORDERED: Iohexol 350 MG/100 ML VIAL ONE (16:40)
--- NOTE | 2018-09-29 17:45 | CT ---
Date of service: 09/29/2018 PROCEDURE: CT Chest, Abdomen and Pelvis with intravenous contrast HISTORY: Esophageal Mass, r/o nodes/mets COMPARISON: None available. TECHNIQUE: IV dose administered: 100 mL Omnipaque 350 Radiation dose: Total exam DLP = 758.19 mGy-cm. This CT exam was performed using one or more of the following dose reduction techniques: Automated exposure control, adjustment of the mA and/or kV according to patient size, and/or use of iterative reconstruction technique. FINDINGS: CT CHEST WITH CONTRAST: LUNGS: Mild centrilobular emphysema. No nodule, mass or consolidation. MEDIASTINUM: Unremarkable. Normal caliber aorta and pulmonary arterial trunk. No aortic dissection. Normal size heart. LYMPH NODES: Unremarkable. PLEURA: Unremarkable. No pneumothorax. No pleural fluid. BONES: Unremarkable. OTHER FINDINGS: None. CT ABDOMEN AND PELVIS: LIVER: Unremarkable. No gross lesion or ductal dilatation. GALLBLADDER AND BILE DUCTS: Unremarkable. PANCREAS: Unremarkable. No gross lesion or ductal dilatation. SPLEEN: Unremarkable. ADRENALS: Unremarkable. No mass. KIDNEYS AND URETERS: Unremarkable. No hydronephrosis. No solid mass. VASCULATURE: Aortic atherosclerotic calcifications. Unremarkable. No aortic aneurysm. BOWEL: Unremarkable. No obstruction. No gross mural thickening. APPENDIX: No findings to suggest acute appendicitis. PERITONEUM: Moderate bilateral fat containing inguinal hernias. No free fluid. No free air. LYMPH NODES: Unremarkable. No enlarged lymph nodes. BLADDER: Unremarkable. REPRODUCTIVE: Unremarkable. BONES: No acute fracture. OTHER FINDINGS: None. IMPRESSION: No suspicious pulmonary nodule/mass or enlarged lymph node in the chest, abdomen or pelvis. No obvious evidence of metastatic disease.
[2018-09-29 21:56] LABS: HEMOGLOBIN 9.6 g/dL (12.0-16.0); MEAN CELL VOLUME 98.3 fl (80.0-105.0); MEAN CORPUSCULAR HEMOGLOBIN 33.3 pg (25.0-35.0); MEAN CORPUSCULAR HGB CONC 33.9 g/dl (31.0-37.0); MEAN PLATELET VOLUME 8.1 fl (7.0-11.0); RBC 2.88 10^6/uL (3.5-6.1); RED CELL DISTRIBUTION WIDTH 12.8 % (11.5-14.5); WHITE BLOOD COUNT 7.9 10^3/uL (4.5-11.0)
[2018-09-30] MEDS ORDERED: Sodium Chloride 0.9% 1,000 ML IV SCH (10:00)
--- NOTE | 2018-09-30 10:21 | CP.PCM.PCO ---
Additional Comments - Additional Comments Additional Comments: Pt seen and examined at bedside. In no acute distress. Denies nausea/vomiting, abdominal pain. D/W GI, planned for possible colonoscopy in AM. Will continue to follow. Impressions Chest/Abdomen/Pelvis CT 09/29/18 12:11 IMPRESSION: No suspicious pulmonary nodule/mass or enlarged lymph node in the chest, abdomen or pelvis. No obvious evidence of metastatic disease. Laboratory Results - last 24 hr 09/29/18 09/29/18 13:55 21:45 WBC 7.9 7.9 RBC 3.08 L 2.88 L Hgb 10.2 L 9.6 L Hct 30.4 L 28.3 L MCV 98.7 98.3 MCH 33.1 33.3 MCHC 33.6 33.9 RDW 12.8 12.8 Plt Count 218 179 MPV 8.7 8.1
--- NOTE | 2018-09-30 10:51 | PN ---
DATE: 09/30/2018 SUBJECTIVE: The patient is seen in [facility], room 576, bed 1. The patient was admitted with GI bleeding. The patient has history of syncope. The patient has history of osteoarthritis, hyperlipidemia. This morning, the patient is seen, she was resting in the bed. PHYSICAL EXAMINATION: VITAL SIGNS: Pulse is 86, blood pressure 143/76, respirations are 20, O2 saturation is 96% on room air. HEENT: The patient's head is normocephalic. NECK: Thyroid is not enlarged. No lymphadenopathy. LUNGS: Clear. HEART: Normal sinus rhythm. ABDOMEN: Soft. Liver and spleen nonpalpable. CENTRAL NERVOUS SYSTEM: No focal deficits. ASSESSMENT AND PLAN: The patient had endoscopy yesterday. 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 The patient has . 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 The patient had a biopsy done yesterday. Postprocedure, the patient was subjected to CAT scan of the abdomen and pelvis and chest that had no pathology noted in the liver, lungs, etc. The patient's clinical condition is stable. The patient is n.p.o. excepting clear fluids. The plan is to do a colonoscopy on her because of the GI bleed and melena. We will followup with the it help desk analyst and discuss the possible treatment and plan for the esophageal lesion. In view of the fact the patient does not have any other metastatic lesions. The patient needs definitive treatment for the low esophageal lesion which is neoplastic. Gregorio Franco MD BARB
--- NOTE | 2018-09-30 11:56 | CP.PCM.PN ---
<Mich Cruz - Last Filed: 09/30/18 11:44> Subjective - Date & Time of Evaluation Date of Evaluation: 09/30/18 Time of Evaluation: 10:00 - Subjective Subjective: Mich Cruz Internal Medicine Resident- Progress Note on Behalf of Dr. Bashir Subjective: Patient seen and examined at bedside. States she experienced 1 dark stool overnight. Denies diarrhea, nausea, vomiting, constipation, bright red blood per rectum, and change in caliber of the stools. Further denies fever, chills, chest pain, SOB. 12 point ROS negative except as indicated in the HPI Physical Examination: - Constitutional Appears: Well, No Acute Distress - Head Exam Head Exam: ATRAUMATIC, NORMAL INSPECTION - Eye Exam Eye Exam: EOMI. absent: Scleral icterus - ENT Exam ENT Exam: Mucous Membranes Moist. absent: Mucous Membranes Dry - Respiratory Exam Respiratory Exam: NORMAL BREATHING PATTERN. absent: Accessory Muscle Use - Cardiovascular Exam Cardiovascular Exam: REGULAR RHYTHM, RRR - GI/Abdominal Exam GI & Abdominal Exam: Normal Bowel Sounds, Soft. absent: Bruit, Diminished Bowel Sounds, Distended, Firm, Guarding, Hernia, Mass, Organomegaly, Pulsatile Mass, Rebound, Rigid, Tenderness - Extremities Exam Extremities exam: Positive for: normal inspection. Negative for: pedal edema - Neurological Exam Neurological exam: Alert, Oriented x3 - Psychiatric Exam Psychiatric exam: Normal Affect, Normal Mood - Skin Skin Exam: Normal Color, Warm Studies Reviewed: 09/29/2018 CT Chest, Abdomen and Pelvis with intravenous contrast- No suspi cious pulmonary nodule/mass or enlarged lymph node in the chest, abdomen or pelvis. No obvious evidence of metastatic disease. 09/30/2018 EGD- official scope report pending, endorsed to have esophageal mass and potential Barrettes Assessment and Plan: Patient is a 82 year old female with a past medical history of HTN, Syncope (pl ans for Loop recorder), Seizure disorder who was admitted for evaluation and treatment of black stool. Melena, + NSAID use Normocytic Anemia- stable 9.6 HTN Syncope Seizure disorder - Plan for colonoscopy 10/01/2018 - Clear Liq Diet for now, NPO after midnight - Doculax 10mg PO x 1 at 1400 - Start nulytely prep at 1600 - Continue PPI IV q 12 hrs Patient case discussed with and plan approved by attending physician, Dr. Bashir. Objective - Vital Signs/Intake and Output Vital Signs (last 24 hours): Temp Pulse Resp BP Pulse Ox 97.3 F L 70 18 130/67 95 09/30/18 06:00 09/30/18 06:00 09/30/18 06:00 09/30/18 06:00 09/30/18 06:00 Intake and Output: 09/30/18 09/30/18 06:59 18:59 Intake Total 1140 Balance 1140 - Medications Medications: Current Medications Bisacodyl (Dulcolax) 10 mg PO ONCE ONE Stop: 09/30/18 14:01 Sodium Chloride (Sodium Chloride 0.9%) 1,000 mls @ 40 mls/hr IV .Q24H COCO Last Admin: 09/30/18 10:21 Dose: 40 mls/hr Pantoprazole Sodium (Protonix Inj) 40 mg IVP Q12 COCO Last Admin: 09/30/18 10:22 Dose: 40 mg Sodium Cl/Sod Bicarb/Potass Cl/PEG (Nulytely With Flavor Packs Homa) 4,000 ml PO ONCE ONE Stop: 09/30/18 16:01 - Labs Labs: 09/29/18 21:45 09/27/18 22:25 PT 11.6 SECONDS (9.4-12.5) 09/27/18 22:25 INR 1.05 09/27/18 22:25 APTT 43.2 Seconds (26.9-38.3) H 09/27/18 22:25 <Saurabh Bashir V - Last Filed: 09/30/18 17:06> Objective - Vital Signs/Intake and Output Vital Signs (last 24 hours): Temp Pulse Resp BP Pulse Ox 98.4 F 87 18 122/47 L 96 09/30/18 13:47 09/30/18 13:47 09/30/18 13:47 09/30/18 13:47 09/30/18 13:47 Intake and Output: 09/30/18 09/30/18 06:59 18:59 Intake Total 1140 1440 Output Total 4 Balance 1140 1436 - Medications Medications: Current Medications Sodium Chloride (Sodium Chloride 0.9%) 1,000 mls @ 40 mls/hr IV .Q24H COCO Last Admin: 09/30/18 10:21 Dose: 40 mls/hr Pantoprazole Sodium (Protonix Inj) 40 mg IVP Q12 COCO Last Admin: 09/30/18 10:22 Dose: 40 mg - Labs Labs: 09/29/18 21:45 09/27/18 22:25 PT 11.6 SECONDS (9.4-12.5) 09/27/18 22:25 INR 1.05 09/27/18 22:25 APTT 43.2 Seconds (26.9-38.3) H 09/27/18 22:25 Attending/Attestation - Attestation I have personally seen and examined this patient.: Yes I have fully participated in the care of the patient.: Yes I have reviewed all pertinent clinical information, including history, physical exam and plan: Yes Notes (Text): This is an addendum to the GI progress report dictated by the resident. The patient was seen and evaluated along with the resident earlier today. Patient did have a CT scan of the abdomen and pelvis done which was reviewed. Negative Patient is scheduled for colonoscopy to further evaluate melena. EG junction ulcerated polypoid lesion rule out malignancy We will reduce the IV fluid and continue on clear liquid diet for colonoscopy prep tomorrow. I did discuss with the Dr. Franco yesterday 09/30/18 17:04
[2018-09-30] MEDS: NuLYTELY (NACL/NAHCO3/KCL/PEG) 4L PO ONE ×2 (13:35→15:51)
[2018-09-30] MEDS ORDERED: Bisacodyl 5mg EC Tab PO ONE (14:00)
--- NOTE | 2018-09-30 22:32 | CON ---
DATE: 09/30/2018 CONSULT SERVICE: Cardiology. REASON FOR THE CONSULTATION AND FOLLOWUP: History of syncope, preoperative evaluation, risk stratification scheduled for loop recorder on 11/02/2018. BRIEF CLINICAL HISTORY: An 82-year-old female with past medical history significant for hypertension, hyperlipidemia who was admitted in last admission on 09/27/2018 with syncopal episode. GI workup was negative. The patient was discharged home. The patient admitted with GI bleed and going for endoscopy, so cardiac consult was called for preoperative evaluation, risk stratification and also for followup. The patient says that she had similar episode of syncopal episode six months ago in [place] and had extensive workup done and found to be negative. PAST MEDICAL HISTORY: Significant for similar syncopal episode/seizure episode. Had a cardiac workup at [facility] including a stress test and echo and was told negative though it was requested from [facility], but did not get the report. Only the information that the patient had a stress test, and no further information available. SOCIAL HISTORY: Denies smoking. Denies any history of alcohol abuse. CURRENT MEDICATIONS: The patient is taking at home baby aspirin 81 mg daily, Naprosyn and Zocor. REVIEW OF SYSTEMS: As per HPI. PHYSICAL EXAMINATION: As follows: GENERAL: Height of the patient is 5 feet. Weight of the patient is 135 pounds. Body mass index 26 kg/m2. VITAL SIGNS: Temperature afebrile, heart rate 70 and blood pressure 134/66. HEENT: PERRLA. Extraocular muscles intact. NECK: Supple. No carotid bruits. No thyromegaly. CHEST: Clear to auscultation. HEART: S1 and S2, regular. ABDOMEN: Soft. EXTREMITIES: Clubbing and cyanosis are negative. LABORATORY DATA: Blood workup: WBC 7, hemoglobin 9.6, hematocrit 28.3 and platelet count 179. Chemistry shows sodium 130, potassium 4, chloride 96, carbon dioxide 26, anion gap of 14, BUN 17 and creatinine 0.6. IMPRESSION: An 82-year-old female with no significant past medical history, admitted with near syncopal episode, similar episode six months ago. Extensive cardiac workup is negative. The patient is scheduled for loop recorder on 11/02/2018. Now, the patient is admitted with gastrointestinal bleed. Yesterday, she underwent endoscopy and CAT scan of the abdomen. The patient is for colonoscopy tomorrow. The patient had evidence of Alvarez esophagus. RECOMMENDATIONS: Continue GI workup. The patient is cleared to go for colonoscopy from cardiology point of view. The patient is scheduled for loop recorder on . The patient will follow with you. Thank you for providing us the opportunity in taking care of the patient, Rosalind Mckeon. Continue amlodipine. Continue simvastatin. Hold aspirin. We will follow with you. The patient is cleared to go for colonoscopy. We will notify Dr. Patricio. No contraindication. We will keep n.p.o. after tomorrow midnight for loop recorder. Kash Jay MD
--- NOTE | 2018-10-01 12:33 | PN ---
DATE: 10/01/2018 SUBJECTIVE: The patient is in [facility], room 576, bed 1. The patient is admitted with GI bleeding. The patient has past history of cerebral atrophy, hypertension, mild, controlled by diet. The patient has osteoarthritis and hyperlipidemia. The patient has been a heavy smoker for 50 to 60 years. On this admission, we were able to diagnose that the patient had lesion in the lower esophagus, possibly a neoplastic lesion. The biopsy report is not available yet. PHYSICAL EXAMINATION: VITAL SIGNS: Pulse is 87, blood pressure 122/47, respirations are 18, O2 sat is 96% on room air. HEENT: Head is normocephalic. NECK: Thyroid is not enlarged. JVP is flat. Carotid pulse present. EXTREMITIES: No evidence of clubbing. LUNGS: Trachea central. Breath sounds are vesicular. No adventitious sounds. HEART: Normal sinus rhythm. S1 and S2 present. No murmurs. ABDOMEN: Soft. Liver and spleen not palpable. No tenderness, no masses. CENTRAL NERVOUS SYSTEM: The patient is conscious, rational, and oriented. No focal neurological deficits noted. The patient is scheduled to have a colonoscopy today to definitely localize any GI bleeding. The patient's biopsy report is awaited. LABORATORY DATA: The patient's blood work hemoglobin 9.6 at this point. The patient's chemistry; BUN is 17, creatinine 0.6. Sugar is 111. Vitamin B12 is within normal range. Folate level is within therapeutic range. The patient's liver enzymes are normal. Iron level is 47.9, which is good. Total iron binding capacity is 297. Total iron level is 71. ASSESSMENT AND PLAN: The patient will have colonoscopy today. The treatment plan for her will be discussed with the branch general manager after this procedure is completed. We will follow up. We will give the patient regular diet after the patient finishes the colonoscopy. Gregorio Franoc MD BARB
--- NOTE | 2018-10-01 15:35 | PN ---
DATE: 10/01/2018 REASON FOR CONSULTATION AND FOLLOWUP: History of syncope, preop evaluation, risk stratification, and scheduled for loop recorder on 11/02/2018. SUBJECTIVE: The patient denies any chest pain, shortness of breath, or any palpitation. OBJECTIVE: GENERAL: Not in apparent distress. VITAL SIGNS: Temperature afebrile, heart rate 90, and blood pressure 129/74. HEENT: PERRLA. Extraocular muscles intact. NECK: Supple. No carotid bruits or thyromegaly. CHEST: Clear to auscultation. HEART: S1 and S2 regular. ABDOMEN: Soft. EXTREMITIES: Clubbing and cyanosis negative. LABORATORY DATA: Blood workup as follows; WBC 7.8, hemoglobin 9.6, hematocrit 28.3, and platelet count 179. Chemistry shows sodium 130, potassium 4.0, chloride 96, carbon dioxide 26, anion gap of 14, BUN 17, and creatinine 0.6. IMPRESSION: An 82-year-old female, with no significant past medical history, admitted with near syncopal episode, similar was six months ago. Had extensive cardiac workup at [facility] was told negative. The patient is scheduled for a loop recorder as outpatient on 11/02/2018, but the patient admitted with gastrointestinal bleed. The patient as inpatient had endoscopy and CAT scan done, is going for colonoscopy today. RECOMMENDATIONS: Keep n.p.o. after for loop recorder tomorrow. Discussed with the patient. We will follow with you. Thank you Dr. Franco for providing us the opportunity in taking care of the patient, Rosalind Mckeon. Kash Jay MD
[2018-10-01] MEDS ORDERED: Propofol 10 mg/ml Inj (20 ML) ONE (16:29)
[2018-10-01] MEDS ORDERED: Sodium Chloride 0.9% 1,000 ML IV SCH (17:00)
[2018-10-01 21:41] VITALS: RESP 20
[2018-10-02 07:44] LABS: BASO # 0.02 K/mm3 (0.0-2.0); BASO % 0.3 % (0.0-3.0); EOS # 0.1 (0.0-0.7); EOS % 1.7 % (1.5-5.0); HEMOGLOBIN 9.9 g/dL (12.0-16.0); LYMPH # 1.4 (1.2-3.4); LYMPH % 18.2 % (22.0-35.0); MEAN CELL VOLUME 97.3 fl (80.0-105.0); MEAN CORPUSCULAR HEMOGLOBIN 33.6 pg (25.0-35.0); MEAN CORPUSCULAR HGB CONC 34.5 g/dl (31.0-37.0); MEAN PLATELET VOLUME 8.1 fl (7.0-11.0); MONO # 0.6 (0.1-0.6); MONO % 7.1 % (1.0-6.0); RBC 2.95 10^6/uL (3.5-6.1); RED CELL DISTRIBUTION WIDTH 13.1 % (11.5-14.5); WHITE BLOOD COUNT 7.8 10^3/uL (4.5-11.0)
[2018-10-02 07:59] LABS: ALB/GLOB RATIO 1.3 (1.1-1.8); ALBUMIN 3.7 g/dL (3.0-4.8); ALT/SGPT 34 U/L (7-56); AST/SGOT 53 U/L (14-36); BLOOD UREA NITROGEN 6 mg/dL (7-21); CALCIUM 8.7 mg/dL (8.4-10.5); GFR NON-AFRICAN AMERICAN > 60
[2018-10-02 08:39] VITALS: BP 126/65; PULSE 76; TEMP 98.4; O2SAT 90
--- NOTE | 2018-10-02 09:33 | PCM.EEG ---
Electroencephalogram Report - Electroencephalogram Report Procedure Date: 09/26/18 Interpretation: Technical Information: This was a 16 -channel EEG, 1-channel EKG routine EEG performed using an Aircuity machine. Electrodes were applied using the 10/20 international placement system. Start; 10;57 End; 11;42 Total; 45 min. Clinical Information: syncope During resting wakefulness there was a symmetric posterior dominant rhythm at 8.5-9.5 Hz, 30-50 uV, which was reactive to eye opening and closing. Drowsiness seen at 11;32 was associated with fragmentation of the posterior dominant rhythm and with slow roving eye movements. Light sleep was not recorded. Hyperventilation was not performed. Photic stimulation was performed and there was bi occipital driving to different flash frequencies. Focal abnormality; none ECG was associated with a normal sinus rhythm. Impression: This is a normal awake and drowsy electroencephalogram.
[2018-10-02] MEDS ORDERED: Lidocaine PF 2% (5 ml) Inj (For Cardiac Arrhy) ONE (09:34)
--- NOTE | 2018-10-02 09:44 | CP.PCM.PN ---
Subjective - Date & Time of Evaluation Date of Evaluation: 10/02/18 Time of Evaluation: 06:50 - Subjective Subjective: Awake, alert, no distress Reason for consultation and follow up:Cardiac evaluation, history of syncope, admitted for GI bleeding, electively scheduled for loop recorder 11/02/18 Seen and examined by me and Dr. Jay Objective - Vital Signs/Intake and Output Vital Signs (last 24 hours): Temp Pulse Resp BP Pulse Ox 98.4 F 76 20 126/65 90 L 10/02/18 06:00 10/02/18 06:00 10/02/18 06:00 10/02/18 06:00 10/02/18 06:00 Intake and Output: 10/02/18 10/02/18 06:59 18:59 Intake Total 240 Balance 240 - Medications Medications: Current Medications Sodium Chloride (Sodium Chloride 0.9%) 1,000 mls @ 40 mls/hr IV .Q24H [facility] Last Admin: 09/30/18 10:21 Dose: 40 mls/hr Pantoprazole Sodium (Protonix Inj) 40 mg IVP Q12 COCO Last Admin: 10/01/18 21:22 Dose: 40 mg - Labs Labs: 10/02/18 07:36 10/02/18 07:36 PT 11.6 SECONDS (9.4-12.5) 09/27/18 22:25 INR 1.05 09/27/18 22:25 APTT 43.2 Seconds (26.9-38.3) H 09/27/18 22:25 - Constitutional Appears: Non-toxic, No Acute Distress - Head Exam Head Exam: NORMAL INSPECTION, NORMOCEPHALIC - Eye Exam Eye Exam: Normal appearance Pupil Exam: NORMAL ACCOMODATION - ENT Exam ENT Exam: Mucous Membranes Moist, Normal Exam - Neck Exam Neck Exam: Full ROM, Normal Inspection - Respiratory Exam Respiratory Exam: Decreased Breath Sounds, Clear to Ausculation Bilateral, NORMAL BREATHING PATTERN - Cardiovascular Exam Cardiovascular Exam: +S1, +S2 - GI/Abdominal Exam GI & Abdominal Exam: Soft, Normal Bowel Sounds - Extremities Exam Extremities Exam: Full ROM, Normal Capillary Refill - Neurological Exam Neurological Exam: Alert, Awake, Oriented x3 - Psychiatric Exam Psychiatric exam: Normal Affect, Normal Mood - Skin Skin Exam: Dry, Normal Color, Warm Assessment and Plan - Assessment and Plan (Free Text) Assessment: An 82 year old female who came in to the ER due to black stools. History of lightheadedness post fall. [place] [facility]. History of hypertension, right knee fluid drainage, current heavy smoker. CT of abdomne and pelvis unremarkable. GI on consult . Colonoscopy done yesterday and showed polyp in the distal transverse colon with resection, diverticulosis and internal hemorrhoids. Electively scheduled for loop recorder today. Cardiac status stable. May discharge from cardiac standpoint after procedure. Plan: For loop recorder insertion today Post colonoscopy yesterday Cardiac status stable Heart rate and blood pressure stable Smoking cessation May discharge after loop recorder from cardiac standpoint Follow up in office 2-3 weeks Plan and treatment discussed with Dr. Jay
--- NOTE | 2018-10-02 11:04 | CPOSTOP ---
DATE: 10/02/2018 CARDIOVASCULAR LAB POST PROCEDURE NOTE CLOTHES PRESSER: Melissa milking machine technician. TYPE OF ANESTHESIA: Local anesthesia. PRE-PROCEDURE DIAGNOSIS: Recurrent syncope. PROCEDURE PERFORMED: Implantation of loop recorder (LINQ). FINDINGS: Recurrent syncope. FINAL DIAGNOSIS: Recurrent syncope. POST PROCEDURE CONDITION: The patient's condition is stable. VASCULAR ACCESS SITE: Left pectoral region. CLOSURE DEVICE: Dermabond. TOTAL RADIATION DOSE: None. FLUORO TIME: None. CUMULATIVE DOSE: None. TOTAL CONTRAST USED: None. Kash Jay MD
--- NOTE | 2018-10-02 12:13 | PN ---
DATE: 09/29/2018 SUBJECTIVE: She is in [facility] room 576, bed 1. The patient was admitted with GI bleeding and the patient has had upper endoscopy and colonoscopy; there is evidence of lesion in the esophagus which has been biopsied. The patient's colonoscopy showed polyp that was removed, no other pathology. The patient is waiting to have a cardiac procedure, an event recorder placed, which will be put on the patient to screen for cardiac arrhythmia because the patient had two episodes of syncope in the last six months. The patient has past history of smoking. The patient has history of osteoarthritis, hyperlipidemia and also the patient admits to have reflux symptoms. PHYSICAL EXAMINATION: GENERAL: The patient is comfortable, lying down in bed. VITAL SIGNS: This morning; the patient's pulse is 87, blood pressure 140/70, respirations are 20, O2 saturation is 98% on room air. HEENT: The head is normocephalic. NECK: Thyroid is not enlarged. JVP is flat. Carotid pulses are present. HEART: Normal sinus rhythm. S1 and S2 present. No murmurs. LUNGS: Trachea central. Breath sounds are vesicular. No adventitious sounds. ABDOMEN: Soft, obese. Liver and spleen not palpable. CENTRAL NERVOUS SYSTEM: No focal deficits. The patient is going to have the event recorder today and she will be discharged. The patient will followup as an outpatient once the biopsy report on the esophagus is available. We will have to schedule the patient for some definitive treatment of the esophageal lesion. We will talk with her daughter once we have the pathology report. Prognosis at this point is guarded, but condition is stable. We will follow up. Her medications as mentioned, she will take Protonix 40 mg daily, multivitamin. She also has some mild anemia, this probably should be corrected with multivitamin with iron. The patient has history of having hyperlipidemia for which she takes simvastatin; this will be resumed. Gregorio Franco MD MTDKassandra
--- NOTE | 2018-10-02 12:36 | CP.PCM.PN ---
<Mich Cruz - Last Filed: 10/02/18 12:31> Subjective - Date & Time of Evaluation Date of Evaluation: 10/02/18 Time of Evaluation: 11:00 - Subjective Subjective: Mich Cruz Internal Medicine Resident- Progress Note on Behalf of Dr. Bashir Subjective: Patient seen and examined at bedside. No acute events since colonoscopy. Underwent loop recorder placement this morning. Offers no new complaints. Denies diarrhea, nausea, vomiting, constipation, bright red blood per rectum, black stools, and change in caliber of the stools. Further denies fever, chills, chest pain, SOB. 12 point ROS negative except as indicated in the HPI Physical Examination: - Constitutional Appears: Well, No Acute Distress - Head Exam Head Exam: ATRAUMATIC, NORMAL INSPECTION - Eye Exam Eye Exam: EOMI. absent: Scleral icterus - ENT Exam ENT Exam: Mucous Membranes Moist. absent: Mucous Membranes Dry - Respiratory Exam Respiratory Exam: NORMAL BREATHING PATTERN. absent: Accessory Muscle Use - Cardiovascular Exam Cardiovascular Exam: REGULAR RHYTHM, RRR - GI/Abdominal Exam GI & Abdominal Exam: Normal Bowel Sounds, Soft. absent: Bruit, Diminished Bowel Sounds, Distended, Firm, Guarding, Hernia, Mass, Organomegaly, Pulsatile Mass, Rebound, Rigid, Tenderness - Extremities Exam Extremities exam: Positive for: normal inspection. Negative for: pedal edema - Neurological Exam Neurological exam: Alert, Oriented x3 - Psychiatric Exam Psychiatric exam: Normal Affect, Normal Mood - Skin Skin Exam: Normal Color, Warm, Incision site on anterior chest wall clean, dry, and intact Studies Reviewed: 09/29/2018 CT Chest, Abdomen and Pelvis with intravenous contrast- No suspicious pulmonary nodule/mass or enlarged lymph node in the chest, abdomen or pelvis. No obvious evidence of metastatic disease. 09/30/2018 EGD- official scope report pending, endorsed to have esophageal mass and potential Barrettes 10/01/2018 Colonoscopy- one 10mm polyp in the distal transverse colon removed with hot snare, diverticulosis in the sigmoid and descending colon, internal hemorrhoids Assessment and Plan: Patient is a 82 year old female with a past medical history of HTN, Syncope (plans for Loop recorder), Seizure disorder who was admitted for evaluation and treatment of black stool. Melena, + NSAID use Normocytic Anemia- stable 9.9 HTN Syncope Seizure disorder - continue heart healthy soft diet - Continue PPI IV q 12 hrs Patient case discussed with and plan approved by attending physician, Dr. Bashir. Objective - Vital Signs/Intake and Output Vital Signs (last 24 hours): Temp Pulse Resp BP Pulse Ox 98.4 F 76 20 126/65 90 L 10/02/18 06:00 10/02/18 06:00 10/02/18 06:00 10/02/18 06:00 10/02/18 06:00 Intake and Output: 10/02/18 10/02/18 06:59 18:59 Intake Total 240 Balance 240 - Medications Medications: Current Medications Sodium Chloride (Sodium Chloride 0.9%) 1,000 mls @ 40 mls/hr IV .Q24H COCO Last Admin: 09/30/18 10:21 Dose: 40 mls/hr Pantoprazole Sodium (Protonix Inj) 40 mg IVP Q12 COCO Last Admin: 10/02/18 10:37 Dose: 40 mg - Labs Labs: 10/02/18 07:36 10/02/18 07:36 PT 11.6 SECONDS (9.4-12.5) 09/27/18 22:25 INR 1.05 09/27/18 22:25 APTT 43.2 Seconds (26.9-38.3) H 09/27/18 22:25 <Saurabh Bashir V - Last Filed: 10/03/18 06:51> Objective - Vital Signs/Intake and Output Vital Signs (last 24 hours): Temp Pulse Resp BP Pulse Ox 98.4 F 76 20 126/65 90 L 10/02/18 06:00 10/02/18 06:00 10/02/18 06:00 10/02/18 06:00 10/02/18 06:00 - Labs Labs: 10/02/18 07:36 10/02/18 07:36 PT 11.6 SECONDS (9.4-12.5) 09/27/18 22:25 INR 1.05 09/27/18 22:25 APTT 43.2 Seconds (26.9-38.3) H 09/27/18 22:25 Attending/Attestation - Attestation I have personally seen and examined this patient.: Yes I have fully participated in the care of the patient.: Yes I have reviewed all pertinent clinical information, including history, physical exam and plan: Yes Notes (Text): Delayed addendeum . Path reviewed with Dr Alexandre. We will dw dr Pina 10/03/18 06:49
--- NOTE | 2018-10-02 12:52 | CARDCATH ---
PROCEDURE DATE: 10/02/2018 CARDIOVASCULAR LAB PROCEDURE NOTE DICTATING PHYSICIAN: Kash Jay MD TYPE OF PROCEDURE PERFORMED: Implantation of loop recorder( Linq) SCHEDULING: Elective. LEVELING MACHINE OPERATOR: Kash Jay MD FURNACE STOCK INSPECTOR: Melissa, architecture technician. ANESTHESIA: Local anesthesia. BRIEF CLINICAL HISTORY: This is an 82-year-old female with past medical history of hypertension, has a recurrent syncope, second episode admitted after being admitted first time six months ago at [facility] where the patient's extensive cardiac workup done including stress test and echo is told as negative. The patient was admitted again with recurrent syncope. The patient is scheduled for elective implantation of loop recorder (LINK). PROCEDURES: The patient was brought to the geochemical laboratory technician, draped in a sterile standard fashion, left side of the chest was prepped in the sterile standard fashion, and then 2% lidocaine 3 to 4 mL was given and then with a -Michele knife #11 small incision was given, and then the loop recorder was injected in the pocket. Pressure applied. Dermabond applied at the puncture site. The patient tolerate the procedure well, returned to the floor in stable condition. Arrangement has been made for transtelephonic pacemaker with Dr. Rex Bean's office and education was given to the patient. We will follow with loop recorder. Thank you Dr. Pina for providing us the opportunity taking care of the patient, Rosalind Mckeon. Kash Jay MD cc: Dr. Sharp [facility]
--- NOTE | 2018-10-05 01:14 | DS ---
BRIEF HISTORY: This is an 82-year-old female with history of osteoarthritis, hypertension controlled by diet, and hyperlipidemia who had just been discharged from the hospital for syncope when she came to the emergency room with GI bleed and tarry stools. The patient has been treated in the past with NSAIDs for back pain, but the patient had not been taking any antiinflammatories recently excepting aspirin 81 mg, which was given to her during her admission for syncope. HOSPITAL COURSE: The patient was admitted to the general medical floor. She was placed on IV Protonix. She was seen by Dr. Bashir, turkey roll maker. 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 The patient also underwent CT of the chest, abdomen and pelvis, which showed no metastases or other acute findings. The patient underwent colonoscopy when polyp was removed and no masses were seen. Prior to discharge, the patient had been scheduled previously for an event recorder, the event recorder was placed and then the patient was discharged home in stable condition. DISCHARGE DIAGNOSES: Alvarez's esophagus, esophageal lesion, hyperlipidemia, arthritis and history of syncope. DISCHARGE MEDICATIONS: Simvastatin 40 mg at night, aspirin 81 mg daily. FOLLOWUP: The patient will followup in one week. Once the results of the pathology are back, the patient will be referred for further treatment of the esophageal lesion and Alvarez's esophagus. Christa Franco MD MTDD
== END 2018-10-02 13:11 | disposition home or self-care (01) | DRG 983 ==
LOC: ED 21:37 → ERH 23:20 → 5RSO 09-28 00:59 → OBSVTOIN 09-28 21:22
PROVIDERS: ADMIT Internal Medicine; ATTEND Internal Medicine
PROC: 0DB38ZX Excision of Lower Esophagus, Via Natural or Artificial Opening Endoscopic, Diagnostic (ICD-10-PCS; 2018-09-29)
PROC: 0DB68ZX Excision of Stomach, Via Natural or Artificial Opening Endoscopic, Diagnostic (ICD-10-PCS; 2018-09-29)
PROC: 0DBL8ZX Excision of Transverse Colon, Via Natural or Artificial Opening Endoscopic, Diagnostic (ICD-10-PCS; principal; 2018-10-01 14:30)
PROC: 0JH632Z Insertion of Monitoring Device into Chest Subcutaneous Tissue and Fascia, Percutaneous Approach (ICD-10-PCS; 2018-10-02)
DX: K92.1 Melena (principal); R55 Syncope and collapse; K22.70 Barrett's esophagus without dysplasia; I10 Essential (primary) hypertension; E78.5 Hyperlipidemia, unspecified; E78.00 Pure hypercholesterolemia, unspecified; D64.9 Anemia, unspecified; K64.8 Other hemorrhoids; D12.3 Benign neoplasm of transverse colon; G40.909 Epilepsy, unspecified, not intractable, without status epilepticus; F17.200 Nicotine dependence, unspecified, uncomplicated; M19.90 Unspecified osteoarthritis, unspecified site; K29.50 Unspecified chronic gastritis without bleeding; K44.9 Diaphragmatic hernia without obstruction or gangrene; K57.10 Diverticulosis of small intestine without perforation or abscess without bleeding; T18.3XXA Foreign body in small intestine, initial encounter; K57.30 Diverticulosis of large intestine without perforation or abscess without bleeding; Z79.1 Long term (current) use of non-steroidal anti-inflammatories (NSAID); K22.8 Other specified diseases of esophagus